=== PATIENT | female | born 1995 | race Caucasian/White ===

== ENCOUNTER 2017-11-27 14:54 | Outpatient (CLI) | payer MEDICAID | END 2017-11-27 23:59 | disposition home or self-care (01) | LOC: RAD 14:54 | PROVIDERS: ATTEND Chiropractor | DX: M54.5 Low back pain (principal); V89.2XXD Person injured in unspecified motor-vehicle accident, traffic, subsequent encounter | CPT/HCPCS: 72100 ==

== ENCOUNTER 2019-09-17 16:04 | Emergency (ER) | payer MEDICAID, OTHER ==
[~2019-09-17] VITALS: Ht 167.6 cm; Wt 56.8 kg
--- NOTE | 2019-09-17 22:40 | NUR ---
Case # [id number] Law eforcment Agency: [employer] Reponding offecer: Cheo Sloan #[id number]. Pt arrived on 09/17/2019, pt accompanied by [employer] advocate for the entirety of the visit. Pt was [facility] at 1700, Urine collected. Exam and OES form completed. Pt seen dy Dr. Kulkarni. STI prophylaxis completed at [facility] prior to arrival at [facility] on 09/17/19 Blood tox screen, HCG (negative), urine completed at [facility] prior to arrival at [facility] on 09/17/19 Pt given water and juice, declined food. Pt offered shower, which she declined. Vitals completed, and pt discharged at 18:30 on 09/17/19 Recieving officer was stevie Heredia #[id number]. RADS placed in mail.
[2019-09-17 22:50] VITALS: BP 92/71
== END 2019-09-17 18:30 | disposition home or self-care (01) ==
LOC: EEVIPCON 16:04 → ER 16:04
DX: T76.21XA Adult sexual abuse, suspected, initial encounter (principal); E86.0 Dehydration; X58.XXXA Exposure to other specified factors, initial encounter; Y93.89 Activity, other specified; Y92.89 Other specified places as the place of occurrence of the external cause; Y99.8 Other external cause status
CPT/HCPCS: 99284